=== PATIENT | male | born 1970 | race Hispanic/Latino ===

== ENCOUNTER → 2022-09-10 | Outpatient (CLI) | payer BC ==
[2022-09-10 13:09] LABS: ALBUMIN 4.2 g/dL (3.5-5.0); POTASSIUM 4.2 mmol/L (3.5-5.1); TOTAL PROTEIN, SERUM 7.7 g/dL (6.0-8.3)
== END | disposition home or self-care (01) ==
LOC: LAB 11:08
PROVIDERS: ATTEND Student in an Organized Health Care Education/Training Program
DX: I10 Essential (primary) hypertension (principal)
CPT/HCPCS: 36415; 80053

== ENCOUNTER → 2022-09-16 | Outpatient (CLI) | payer BC ==
[~2022-09-16] MED LIST: IOHEXOL 350 MG/ML 100ML INFUS..BTL IV ONE
== END | disposition home or self-care (01) ==
LOC: RAH 10:13
PROVIDERS: ATTEND Student in an Organized Health Care Education/Training Program
DX: R07.9 Chest pain, unspecified (principal)
CPT/HCPCS: 75574; Q9967

== ENCOUNTER 2023-01-15 08:02 | Day surgery (SDC) | payer BC ==
[2023-01-11 14:42] LABS: BASOPHILS # (AUTO) 0.04 K/uL (0.00-0.20); BASOPHILS % (AUTO) 0.6 % (0.0-5.0); EOSINOPHILS # (AUTO) 0.22 K/uL (0.00-0.70); EOSINOPHILS % (AUTO) 3.4 % (0.0-8.0); HEMATOCRIT 43.9 % (42-54); IMMATURE GRANULOCYTE ABSOLUTE 0.01 K/uL (0-1); LYMPHOCYTES # (AUTO) 2.6 K/uL (1.0-4.8); LYMPHOCYTES % (AUTO) 39.4 % (21.0-51.0); MEAN CORPUSCULAR HEMOGLOBIN 30.8 pg (27.0-33.0); MEAN CORPUSCULAR HGB CONC 33.5 g/dL (32.0-36.0); MEAN CORPUSCULAR VOLUME 91.8 fL (79-99); MONOCYTES # (AUTO) 0.5 K/uL (0.1-1.0); MONOCYTES % (AUTO) 7.7 % (3.0-13.0); NEUTROPHILS # (AUTO) 3.2 K/uL (1.8-7.7); NEUTROPHILS % (AUTO) 48.7 % (40.0-77.0); PLATELET COUNT (AUTO) 236 K/uL (130-400); RED BLOOD CELL COUNT(AUTO) 4.78 MIL/uL (4.50-6.20); WHITE BLOOD COUNT (AUTO) 6.5 K/uL (4.8-10.8)
[2023-01-11 14:45] VITALS: BP 126/78; PULSE 57; RESP 17
[2023-01-11 14:50] LABS: INR 0.95 (0.85-1.15); PROTHROMBIN TIME 11.1 SEC (9.6-11.6)
[2023-01-11 14:51] LABS: CREATININE 0.9 mg/dL (0.5-1.5); PARTIAL THROMBOPLASTIN TIME 31.2 SEC (26.3-35.5); POTASSIUM 3.9 mmol/L (3.5-5.1)
[2023-01-15] VITALS (18 sets, daily range): BP systolic 116–150; BP diastolic 57–93; PULSE 57–74; RESP 12–20
[~2023-01-15] VITALS: Ht 180.3 cm; Wt 112.9 kg
[~2023-01-15 08:02] MED LIST changes: +DEXAMETHASONE SOD PHOSPHATE 10MG/ML 1ML VIAL ONE; +FENTANYL CITRATE PF 50 MCG/1 ML 2ML VIAL ONE; +GLYCOPYRROLATE 1 MG/5 ML SYRINGE ONE; -IOHEXOL 350 MG/ML 100ML INFUS..BTL IV ONE; +LIDOCAINE PF 100MG/5ML (2%) SYRINGE 5ML ONE; +METO25TA6 PO; +MIDAZOLAM HCL 1 MG/ML 2ML VIAL ONE; +NEOSTIGMINE 5MG/5ML SYR IV ONE; +ONDANSETRON 4MG INJ ONE; +PROPOFOL 10 MG/ML 20ML VIAL IV ONE; +ROCURONIUM 10MG/1ML SYR 10 MG/ML ML ONE; +SUCCINYLCHOLINE 200MG/10ML SYR ONE
[2023-01-15] MEDS ORDERED: CEFAZOLIN SODIUM 2 GM VIAL ONE (08:20)
[2023-01-15] MEDS ORDERED: LACTATED RINGERS 1000ML 1,000 ML IV ONE (08:20)
[2023-01-15] MEDS ORDERED: CEFAZOLIN SODIUM 1 GM VIAL ONE (08:20)
[2023-01-15] MEDS ORDERED: VANCOMYCIN 1G/250ML KIT 250 ML IV ONE (08:29)
[2023-01-15] MEDS ORDERED: BUPIVACAINE/PF 0.25% 30ML VIAL IJ ONE (09:15)
[2023-01-15] MEDS ORDERED: ESMOLOL HCL 10 MG/ML 10 ML VIAL ONE ×2 (09:40→10:22)
[2023-01-15] MEDS ORDERED: SUCCINYLCHOLINE 200MG/10ML SYR ONE (09:50)
[2023-01-15] MEDS ORDERED: FENTANYL CITRATE PF 50 MCG/1 ML 2ML VIAL ONE (09:58)
[2023-01-15] MEDS ORDERED: PROPOFOL 10 MG/ML 20ML VIAL IV ONE (10:17)
[2023-01-15] MEDS ORDERED: MEPERIDINE-PF 25 MG/ML SYG ONE (11:12)
== END 2023-01-15 12:55 | disposition home or self-care (01) ==
LOC: DAH 08:02
PROVIDERS: ATTEND Surgery
DX: K43.0 Incisional hernia with obstruction, without gangrene (principal); Z20.822 Contact with and (suspected) exposure to COVID-19; I10 Essential (primary) hypertension; F41.9 Anxiety disorder, unspecified; E66.9 Obesity, unspecified; I48.91 Unspecified atrial fibrillation; I25.10 Atherosclerotic heart disease of native coronary artery without angina pectoris; I25.2 Old myocardial infarction; Z79.01 Long term (current) use of anticoagulants; Z79.899 Other long term (current) drug therapy; Z88.0 Allergy status to penicillin; Z82.49 Family history of ischemic heart disease and other diseases of the circulatory system; Z83.3 Family history of diabetes mellitus; Z80.8 Family history of malignant neoplasm of other organs or systems; Z82.5 Family history of asthma and other chronic lower respiratory diseases; Z87.891 Personal history of nicotine dependence; Z68.36 Body mass index [BMI] 36.0-36.9, adult
CPT/HCPCS: 80048; 85025; 85610; 85730; 87426; 36415; 49594; 93005; 64488; A4663; J7120 ×2; J3010 ×2; J0330 ×2; J3490 ×3; J1100; J2710; J2001; J2250; J2704 ×2; J2405; J3370; J2175; C1769 ×2; A4649; A4930 ×2; A4215; A4223; A4222; A4221; J7030; A4600; J0690

== ENCOUNTER → 2023-02-04 | Outpatient (CLI) | payer BC ==
[~2023-02-04] MED LIST changes: -DEXAMETHASONE SOD PHOSPHATE 10MG/ML 1ML VIAL ONE; -FENTANYL CITRATE PF 50 MCG/1 ML 2ML VIAL ONE; -GLYCOPYRROLATE 1 MG/5 ML SYRINGE ONE; -LIDOCAINE PF 100MG/5ML (2%) SYRINGE 5ML ONE; -MIDAZOLAM HCL 1 MG/ML 2ML VIAL ONE; -NEOSTIGMINE 5MG/5ML SYR IV ONE; -ONDANSETRON 4MG INJ ONE; -PROPOFOL 10 MG/ML 20ML VIAL IV ONE; -ROCURONIUM 10MG/1ML SYR 10 MG/ML ML ONE; -SUCCINYLCHOLINE 200MG/10ML SYR ONE
[2023-02-04 12:46] LABS: CHOLESTEROL 204 mg/dL (<200); HDL CHOLESTEROL 49 mg/dL (29-71); LDL DIRECT 124 mg/dL (0-99); TRIGLYCERIDES 168 mg/dL (30-200)
== END | disposition home or self-care (01) ==
LOC: LAB 09:07
PROVIDERS: ATTEND Student in an Organized Health Care Education/Training Program
DX: E78.5 Hyperlipidemia, unspecified (principal)
CPT/HCPCS: 36415; 80061

== ENCOUNTER 2023-02-07 18:09 | Observation (INO) | payer BC ==
[~2023-02-07] VITALS: Ht 180.3 cm; Wt 111.3 kg
[2023-02-07 18:25] LABS: BASOPHILS # (AUTO) 0.04 K/uL (0.00-0.20); BASOPHILS % (AUTO) 0.5 % (0.0-5.0); EOSINOPHILS # (AUTO) 0.39 K/uL (0.00-0.70); EOSINOPHILS % (AUTO) 4.6 % (0.0-8.0); HEMATOCRIT 45.6 % (42-54); IMMATURE GRANULOCYTE ABSOLUTE 0.03 K/uL (0-1); LYMPHOCYTES # (AUTO) 3.7 K/uL (1.0-4.8); MEAN CORPUSCULAR HEMOGLOBIN 30.9 pg (27.0-33.0); MEAN CORPUSCULAR HGB CONC 34.6 g/dL (32.0-36.0); MEAN CORPUSCULAR VOLUME 89.2 fL (79-99); MONOCYTES # (AUTO) 0.7 K/uL (0.1-1.0); MONOCYTES % (AUTO) 8.5 % (3.0-13.0); NEUTROPHILS # (AUTO) 3.6 K/uL (1.8-7.7); PLATELET COUNT (AUTO) 278 K/uL (130-400); RED BLOOD CELL COUNT(AUTO) 5.11 MIL/uL (4.50-6.20); WHITE BLOOD COUNT (AUTO) 8.5 K/uL (4.8-10.8)
[2023-02-07 18:36] LABS: INR 0.93 (0.85-1.15); PROTHROMBIN TIME 10.5 SEC (9.6-11.6)
[2023-02-07 18:40] LABS: CREATININE 1.1 mg/dL (0.5-1.5); POTASSIUM 3.8 mmol/L (3.5-5.1)
[2023-02-07 18:45] LABS: ALBUMIN 3.8 g/dL (3.5-5.0); BILIRUBIN,TOTAL 0.6 mg/dL (0.2-1.0); MAGNESIUM 1.9 mg/dL (1.80-2.40); TOTAL PROTEIN, SERUM 7.8 g/dL (6.0-8.3)
[2023-02-07 18:50] LABS: B-TYPE NATRIURETIC PEPTIDE 8 pg/mL (0-100)
[2023-02-07] MEDS ORDERED: IOHEXOL 350 MG/ML 100ML INFUS..BTL IV ONE (20:11)
[2023-02-07] MEDS ORDERED: ACETAMINOPHEN 325 MG TAB PO PRN ×2 (23:00)
[2023-02-07] MEDS ORDERED: NITROGLYCERIN 0.4 MG SL TAB SL PRN (23:00)
[2023-02-07] MEDS ORDERED: ONDANSETRON 4MG INJ IV PRN (23:00)
[2023-02-07 23:24] VITALS: BP 127/89; PULSE 59; RESP 20
[2023-02-08 00:01] VITALS: O2SAT 96
[2023-02-08 04:16] VITALS: BP 115/76; PULSE 67; RESP 20
[2023-02-08 05:35] LABS: HEMOGLOBIN A1C 5.8 % (4.0-6.0)
[2023-02-08 06:58] LABS: THYROID STIMULATING HORMONE 1.32 uIU/mL (0.36-3.74)
[2023-02-08 08:20] VITALS: BP 125/73; PULSE 58; RESP 18; O2SAT 97
[2023-02-08 08:29] VITALS: BP 125/73; PULSE 58; RESP 18
[2023-02-08] MEDS ORDERED: FAMOTIDINE 20MG TAB PO SCH (09:00)
[2023-02-08] MEDS ORDERED: METOPROLOL TARTRATE 25 MG TAB PO SCH (09:00)
[2023-02-08] MEDS ORDERED: ASPIRIN 81 MG EC TAB PO SCH (09:00)
[2023-02-08 12:00] VITALS: BP 127/87; PULSE 68; RESP 18
[2023-02-08 12:30] VITALS: BP 127/87; PULSE 68; RESP 18
[2023-02-08] MEDS ORDERED: AEC81 PO (15:08)
== END 2023-02-08 17:36 | disposition home or self-care (01) ==
LOC: EDH 18:09 → EDHIP 22:34 → 2DH 23:12
PROVIDERS: ADMIT Hospitalist; ATTEND Hospitalist
DX: R00.2 Palpitations (principal); R42 Dizziness and giddiness; R55 Syncope and collapse; I25.10 Atherosclerotic heart disease of native coronary artery without angina pectoris; I10 Essential (primary) hypertension; F41.9 Anxiety disorder, unspecified; F32.A Depression, unspecified; I25.2 Old myocardial infarction; Z88.0 Allergy status to penicillin; Z79.899 Other long term (current) drug therapy
CPT/HCPCS: 99285; 82550; 83735; 84484 ×4; 80053; 83880; 85025; 85610; 36415 ×2; 71045; 71270; 93005; 83036; 84443; 80061; G0378 ×19; Q9967

== ENCOUNTER → 2023-09-17 | Outpatient (CLI) | payer BC ==
[~2023-09-17] MED LIST changes: +AEC81 PO
[2023-09-17 12:38] LABS: CHOLESTEROL 217 mg/dL (<200); HDL CHOLESTEROL 53 mg/dL (29-71); LDL DIRECT 135 mg/dL (0-99); TRIGLYCERIDES 200 mg/dL (30-200)
== END | disposition home or self-care (01) ==
LOC: LAB 08:45
PROVIDERS: ATTEND Student in an Organized Health Care Education/Training Program
DX: E78.5 Hyperlipidemia, unspecified (principal)
CPT/HCPCS: 36415; 80061

== ENCOUNTER 2024-03-23 23:20 | Emergency (ER) | payer BC ==
[~2024-03-23] VITALS: Ht 167.6 cm; Wt 102.1 kg
[2024-03-23 23:48] LABS: BASOPHILS # (AUTO) 0.04 K/uL (0.00-0.20); BASOPHILS % (AUTO) 0.6 % (0.0-5.0); EOSINOPHILS # (AUTO) 0.38 K/uL (0.00-0.70); EOSINOPHILS % (AUTO) 5.2 % (0.0-8.0); HEMATOCRIT 46.4 % (42-54); IMMATURE GRANULOCYTE ABSOLUTE 0.03 K/uL (0-1); LYMPHOCYTES # (AUTO) 3.5 K/uL (1.0-4.8); LYMPHOCYTES % (AUTO) 48.9 % (21.0-51.0); MEAN CORPUSCULAR HEMOGLOBIN 31.3 pg (27.0-33.0); MEAN CORPUSCULAR HGB CONC 34.7 g/dL (32.0-36.0); MEAN CORPUSCULAR VOLUME 90.3 fL (79-99); MONOCYTES # (AUTO) 0.4 K/uL (0.1-1.0); MONOCYTES % (AUTO) 5.9 % (3.0-13.0); NEUTROPHILS # (AUTO) 2.8 K/uL (1.8-7.7); PLATELET COUNT (AUTO) 245 K/uL (130-400); RED BLOOD CELL COUNT(AUTO) 5.14 MIL/uL (4.50-6.20); RED CELL DISTRIBUTION WIDTH 12.2 % (11.0-15.5); WHITE BLOOD COUNT (AUTO) 7.2 K/uL (4.8-10.8)
[2024-03-23] MEDS: LACTATED RINGERS 1000ML 1,000 ML IV ONE (23:54)
[2024-03-24 00:01] LABS: CREATININE 1.2 mg/dL (0.5-1.3); POTASSIUM 3.4 mmol/L (3.5-5.1)
[2024-03-24 00:05] LABS: INR 0.95 (0.85-1.15); PARTIAL THROMBOPLASTIN TIME 28.1 SEC (26.3-35.5); PROTHROMBIN TIME 10.3 SEC (9.6-11.6)
[2024-03-24 00:06] LABS: MAGNESIUM 1.9 mg/dL (1.80-2.40)
[2024-03-24 01:23] LABS: B-TYPE NATRIURETIC PEPTIDE < 5 pg/mL (0-100)
[2024-03-24 02:15] LABS: AMPHET/METH SCREEN,URINE NEGATIVE (NEGATIVE); BARBITURATE SCREEN, URINE NEGATIVE (NEGATIVE); BENZODIAZEPINES SCREEN,URINE NEGATIVE (NEGATIVE); CANNABINOID SCREEN,URINE NEGATIVE (NEGATIVE); COCAINE SCREEN,URINE NEGATIVE (NEGATIVE); OPIATE SCREEN,URINE NEGATIVE (NEGATIVE); PHENCYCLIDINE SCREEN,URINE NEGATIVE (NEGATIVE)
[2024-03-24 02:18] LABS: APPEARANCE,URINE CLEAR (CLEAR); BILIRUBIN,URINE NEGATIVE (NEGATIVE); COLOR,URINE LIGHT-YELLOW (YELLOW); GLUCOSE, URINE (UA) NEGATIVE (NEGATIVE); KETONES,URINE NEGATIVE (NEGATIVE); LEUKOCYTE ESTERASE ,URINE NEGATIVE Leu/uL (NEGATIVE); NITRATE,URINE NEGATIVE (NEGATIVE); OCCULT BLOOD,URINE NEGATIVE (NEGATIVE); PH,URINE 5.5 (5.0-8.0); PROTEIN,URINE NEGATIVE (NEGATIVE); UROBILINOGEN,URINE 0.2 mg/dL (0.2-1.0)
[2024-03-24 02:19] LABS: ADD UA MICROSCOPIC NO
[2024-03-24] MEDS: PoTASSium BIcarbonate/CIT AC 25 MEQ TABLET.EFF PO ONE (02:23)
[2024-03-24 02:30] VITALS: BP 122/78; PULSE 117; RESP 18; TEMP 98.3; O2SAT 97
== END 2024-03-24 02:35 | disposition home or self-care (01) ==
LOC: EDH 23:20
DX: R00.0 Tachycardia, unspecified (principal); E86.0 Dehydration; E66.9 Obesity, unspecified; I25.10 Atherosclerotic heart disease of native coronary artery without angina pectoris; I10 Essential (primary) hypertension; I25.2 Old myocardial infarction; Z88.0 Allergy status to penicillin; Z79.82 Long term (current) use of aspirin; Z79.899 Other long term (current) drug therapy; Z68.30 Body mass index [BMI] 30.0-30.9, adult
CPT/HCPCS: 99284; 96360; 71045; 82550; 83735; 84484; 80048; 83880; 80305; 85025; 85610; 85730; 36415; 93005; 81003; J7120

== ENCOUNTER 2024-05-27 10:46 | Emergency (ER) | payer BC ==
[~2024-05-27] VITALS: Ht 154.9 cm; Wt 122.5 kg
--- NOTE | 2024-05-27 11:06 | ERN ---
ED Note History of Present Illness Stated Complaint: ABDPAIN Chief Complaint: Abdominal Pain Time Seen by MD: 10:49 Dictation: PATIENT IS A 53-YEAR-OLD MALE COMING IN TODAY WITH COMPLAINTS OF PERIUMBILICAL PAIN WITHOUT NAUSEA VOMITING OR FEVER ONSET YESTERDAY. HAS A HISTORY OF PRIOR UMBILICAL HERNIA REPAIRS X2 AT [facility] [place], HAS NOT BEEN TO SEE HIS PRIMARY CARE DOCTOR. Allergies: Coded Allergies: Penicillins (Unverified Allergy, Severe, ANAPHYLAXIS, 01/11/23) Home Meds Active Scripts Aspirin (ASPIRIN 81 MG ECTAB) 81 Mg Ectab, 81 MG PO DAILY, #30 TAB.EC Prov:MILLICENT ABRAHAM MD 02/08/23 Reported Medications Metoprolol Tartrate (Metoprolol Tartrate) 25 Mg Tablet, 25 MG PO BID, TAB 01/11/23 Past Medical History Past Medical History: CAD, Hypertension, [place] Surgical History: Other Surgical History Other: HERNIA Family History: Negative Social History: Negative, Lives with family RN Note Reviewed/Agreed w/PFSH: Yes Review of System Dictation CONSTITUTIONAL: NEGATIVE EXCEPT FOR HPI HEAD/FACE: NEGATIVE EXCEPT FOR HPI EENT: NEGATIVE EXCEPT FOR HPI RESPIRATORY: NEGATIVE EXCEPT FOR HPI GASTROINTESTINAL/ABDOMINAL: NEGATIVE EXCEPT FOR HPI PERIUMBILICAL PAIN WITH HERNIA NOTED REDUCIBLE GENITOURINARY: NEGATIVE EXCEPT FOR HPI MUSCULOSKELETAL: NEGATIVE EXCEPT FOR HPI INTEGUMENTARY: NEGATIVE EXCEPT FOR HPI NEUROLOGICAL/PSYCH: NEGATIVE EXCEPT FOR HPI HEMATOLOGIC/LYMPHATIC: NEGATIVE EXCEPT FOR HPI ALL SYSTEMS NEGATIVE, EXCEPT NOTED ABOVE. 13 POINT REVIEW OF SYSTEMS ASSESSED AND ALL NEGATIVE EXCEPT FOR ABOVE. Initial Vital Sign VS Vital Signs Date Time Temp Pulse Resp B/P (MAP) Pulse Ox O2 Delivery O2 Flow Rate FiO2 05/27/24 11:06 98.2 86 22 163/107 99 Room Air 0 05/27/24 11:07 21 Physical Exam Dictation VITAL SIGNS REVIEWED GENERAL APPEARANCE: ALERT, ORIENTED X 3, MILD ACUTE DISTRESS, WELL DEVELOPED, NOURISHED. MORBIDLY OBESE HEAD AND FACE: NON-TRAUMATIC. EYES: PERRL, PINK CONJUNCTIVAS, EYELID NO TRAUMA, ANTERIOR CHAMBER WITH ARCUS SENILIS. EARS: PINNAS INTACT AND NO SIGNS OF TRAUMA OR ERYTHEMA EAR CANALS CLEAR AND NO DISCHARGE TM NO ERYTHEMA NOSE: NO DISCHARGE, NO BLEEDING. OROPHARYNX: MOUTH NORMAL, TONGUE PINK, PHARYNX CLEAR,NO ERYTHEMA, TONSILS NO EXUDATES, NO ABSCESSES NOTED, MUCOUS ME MBRANE MOIST NECK: SUPPLE, NON-TENDER, NO THYROMEGALY, NO MASSES, NO JVD, NO BRUITS BREAST:DEFERRED CHEST:NO TENDERNESS, NO CREPITUS, NO PARADOXICAL MOVEMENT, NO RETRACTIONS LUNGS:CLEAR, WELL-VENTILATED, SYMMETRIC, NO RALES, NO WHEEZING, NO RHONCHI, NO STRIDOR, GOOD BREATH SOUNDS BILATERALLY HEART: REGULAR RATE, REGULAR RHYTHM, NO MURMUR, NO GALLOPS VASCULAR: NO PERIPHERAL EDEMA, ABDOMEN: SOFT, POSITIVE BOWEL SOUNDS, NONDISTENDED, NO GUARDING, MILD LEFT LATERAL PERIUMBILICAL TENDERNESS AND OBVIOUS HERNIA. REDUCE HIS EASILY. RECTAL: DEFERRED GENITAL: DEFERRED NEUROLOGICAL: NORMAL SPEECH, MOTOR FUNCTION INTACT, SENSORY FUNCTION INTACT MUSCULOSKELETAL: NECK NONTENDER, FULL RANGE OF MOTION, BACK NONTENDER, FULL RANGE OF MOTION, EXTREMITIES: NONTENDER, FULL RANGE OF MOTION SKIN: COLOR PINK, DRY, NO TURGOR, NO RASH, NO LACERATIONS, NO ABRASIONS, NO CONTUSIONS. LYMPHATIC: DEFERRED Results (Laboratory/Radiology) Laboratory/Radiology Laboratory Tests Test 05/27/24 11:27 05/27/24 13:34 White Blood Count 6.2 K/uL (4.8-10.8) Red Blood Count 5.05 MIL/uL (4.50-6.20) Hemoglobin 15.8 g/dL (14.0-18.0) Hematocrit 45.5 % (42-54) Mean Corpuscular Volume 90.1 fL (79-99) Mean Corpuscular Hemoglobin 31.3 pg (27.0-33.0) Mean Corpuscular Hemoglobin Concent 34.7 g/dL (32.0-36.0) Red Cell Distribution Width 12.0 % (11.0-15.5) Platelet Count 233 K/uL (130-400) Mean Platelet Volume 10.8 fL (7.5-10.5) H Immature Granulocyte % (Auto) 0.3 % (0-1) Neutrophils (%) (Auto) 59.3 % (40.0-77.0) Lymphocytes (%) (Auto) 31.6 % (21.0-51.0) Monocytes (%) (Auto) 6.2 % (3.0-13.0) Eosinophils (%) (Auto) 2.3 % (0.0-8.0) Basophils (%) (Auto) 0.3 % (0.0-5.0) Neutrophils # (Auto) 3.7 K/uL (1.8-7.7) Lymphocytes # (Auto) 2.0 K/uL (1.0-4.8) Monocytes # (Auto) 0.4 K/uL (0.1-1.0) Eosinophils # (Auto) 0.14 K/uL (0.00-0.70) Basophils # (Auto) 0.02 K/uL (0.00-0.20) Absolute Immature Granulocyte (auto 0.02 K/uL (0-1) Nucleated Red Blood Cells 0.0 % (0.0-0.19) Sodium Level 142 mmol/L (136-145) Potassium Level 4.6 mmol/L (3.5-5.1) Chloride Level 104 mmol/L (101-111) Carbon Dioxide Level 28 mmol/L (21-32) Blood Urea Nitrogen 21 mg/dL (7-18) H Creatinine 1.4 mg/dL (0.5-1.3) H Glomerular Filtration Rate Calc 61 mL/min (>90) Random Glucose 105 mg/dL (70-105) Total Calcium 9.0 mg/dL (8.5-10.1) Lipase 40 U/L (16-77) Urine Color LIGHT-YELLOW (YELLOW) Urine Appearance CLEAR (CLEAR) Urine pH 7.0 (5.0-8.0) Urine Specific [place] 1.025 (1.001-1.031) Urine Protein NEGATIVE mg/dL (NEGATIVE) Urine Glucose (UA) NEGATIVE mg/dL (NEGATIVE) Urine Ketones NEGATIVE mg/dL (NEGATIVE) Urine Occult Blood MODERATE (NEGATIVE) H Urine Nitrate NEGATIVE (NEGATIVE) Urine Bilirubin NEGATIVE mg/dL (NEGATIVE) Urine Urobilinogen 0.2 mg/dL (0.2-1.0) Urine Leukocyte Esterase NEGATIVE Matthew/uL Urine RBC 26-50 /HPF (0-1) H Urine WBC 0-1 /HPF (0-1) Urine Bacteria None /HPF (None Seen) ABDOMEN: Heart size is normal. Visible lung bases are clear. No abnormal left renal calcifications, hydronephrosis, perinephric inflammation, or proximal hydroureter detected. 3 mm right ureterovesicular junction stone contributing to mild to moderate right hydroureteronephrosis. Punctate nonobstructing stone at the mid to lower portion of the right kidney. Small simple right renal cyst. Mild right perinephric edema. The liver is normal in size and smooth in contour without biliary duct dilation. Diffuse low attenuation of the liver parenchyma suggests fatty change. The spleen is normal in size and attenuation. The gallbladder appears normal. The pancreas appears normal without pancreatic duct dilation. The adrenal glands appear normal. No significant abdominal, retrocrural or retroperitoneal adenopathy noted. No evidence for intra-abdominal free air or organized fluid collection. No aortic aneurysmal dilation identified. Very small fat-containing nonobstructing supraumbilical hernia. Small fat-containing nonobstructing ventral hernia slightly to the left of the midline at the same level. PELVIS: No abnormal calcifications within the urinary bladder or distal ureters. No evidence for free air or organized pelvic fluid collection. No significant pelvic adenopathy detected. Visualized small and large bowel loops appear normal. Terminal ileum appears unremarkable. The appendix appears normal. Visible osseous structures are intact. IMPRESSION: 1. 3 mm right ureterovesicular junction stone contributing to mild to moderate right hydroureteronephrosis and mild right perinephric edema. Punctate nonobstructing right renal stone. 2. Very small fat-containing nonobstructing supraumbilical hernia. Small fat-containing nonobstructing ventral hernia slightly to the left of the midline at the same level. 3. Hepatic steatosis. Labs Reviewed?: Yes ED Course ED Course Orders Procedure Category Date Status Time Cbc With Differential LAB 05/27/24 Complete 11:03 Urinalysis Profile LAB 05/27/24 Complete 11:03 Ct Abdomen/Pelvis CT 05/27/24 Resulted W/Contrast 11:03 0.9%Nacl 1000ml (Ns PHA 05/27/24 Complete 1000ml) 11:30 Morphine 2mg Syg PHA 05/27/24 Complete (Morphine 2mg Syg) 11:30 Ondansetron 4mg Inj PHA 05/27/24 Complete (Zofran 4mg Inj) 11:30 Lipase LAB 05/27/24 Complete 11:03 Basic Metabolic Panel LAB 05/27/24 Complete 11:03 Iohexol (Omnipaque) PHA 05/27/24 Complete 11:53 Tamsulosin Hcl PHA 05/27/24 Complete (Flomax) 13:00 Ketorolac PHA 05/27/24 Complete Tromethamine 30mg/Ml 13:00 Current Medications Medications (Trade) Dose Ordered Sig/Venita Route PRN Reason Start Time Stop Time Status Last Admin Dose Admin Iohexol (Omnipaque) 75 ml STK-MED ONCE IV 05/27/24 11:53 05/27/24 11:54 DC Ketorolac Tromethamine (toRADol) 30 mg ONCE ONCE IVP 05/27/24 13:00 05/27/24 13:01 DC 05/27/24 13:06 Morphine Sulfate (morPHINE 2MG SYG) 2 mg ONCE ONCE IVP 05/27/24 11:30 05/27/24 11:31 DC 05/27/24 11:34 Ondansetron HCl (zoFRAN 4MG INJ) 4 mg ONCE ONCE IVP 05/27/24 11:30 05/27/24 11:31 DC 05/27/24 11:33 Sodium Chloride 1,000 ml @ 0 mls/hr ONCE ONCE IV 05/27/24 11:30 05/27/24 11:31 DC 05/27/24 11:33 Tamsulosin HCl (FloMAX) 0.4 mg ONCE ONCE PO 05/27/24 13:00 05/27/24 13:01 DC 05/27/24 13:06 Vital Signs Date Time Temp Pulse Resp B/P (MAP) Pulse Ox O2 Delivery O2 Flow Rate FiO2 05/27/24 13:49 98.2 73 18 147/89 96 Room Air* 0 21 05/27/24 11:07 80 18 146/98 98 Room Air* 0 21 05/27/24 11:06 98.2 86 22 163/107 99 Room Air 0 1355, patient is aware that he has a left urolithiasis with a ureteral colic. Not obstructing. Discharged home with Levaquin and Flomax and ibuprofen told to follow up with his doctor for Urology referral in the next 2-3 days. Medical Decision Making MDM MDM: Differential diagnosis: Diverticulitis/incarcerated hernia/strangulated hernia/UTI/electrolyte imbalance/dehydration/urolithiasis/ureteral colic Rationale: Tests considered and ordered secondary to shared decision making include: Radiology/labs Previous outside records reviewed: Old ER visits. Reviewed Risk of complication and/or morbidity or mortality of patient management: None Medications-Per medication reconciliation see nurse's notes Need for hospitalization: Patient does not meet criteria for hospitalization. No Need for emergency major/minor surgery: No There are no social concerns with this patient. Prescription drug management Flomax/Levaquin/ibuprofen Prescriptions will include symptomatic care Patient's prior external medical records from other ER visits were reviewed by me as indicated. Prior testing and results from previous visits were reviewed. Prior tests were taken into account with medical decision making and resource utilization, independent historian/historians were used to obtain complete medical history. I independently interpreted the test that were performed, results were reviewed by me and considered findings on radiology if ordered. Medical management and examination interpretation discussions were had by me with other qualified healthcare professionals as indicated for the patient's care. DX & DISP Disposition: Discharge Departure Impression: Primary Impression: Urolithiasis Additional Impressions: Ureteral colic, Dehydration, Umbilical hernia, Obesity Condition: Stable Scripts Ibuprofen (Ibuprofen) 800 Mg Tablet 800 MG PO Q8H PRN for PAIN, #30 TAB 0 Refills Prov: JACE HATFIELD NP 05/27/24 Levofloxacin (Levofloxacin) 500 Mg Tablet 1 TAB PO DAILY for 7 Days, #7 TAB 0 Refills Prov: JACE HATFIELD NP 05/27/24 Tamsulosin HCl (Flomax) 0.4 Mg Cap.er.24h 0.4 MG PO DAILY for 14 Days, #14 CAPSULE. Prov: JACE HATFIELD NP 05/27/24 Additional Instructions: Follow-up with primary care provider in 1 to 2 days. Take medications as directed here in the emergency room. Okay to continue home medications unless otherwise discussed during your visit in the emergency room today. Return to your nearest emergency room if symptoms worsen or if there is no improvement. Call 911 if you need immediate assistance. Take Tylenol or Motrin [id number] as needed and if no contraindications are present. Increase o ral hydration. A wound culture or urine culture was ordered here in the emergency room department please follow-up with primary care provider and advise them to get repeat ports from our facility. If you had any Roberto wrap/splints that were applied here, please do not remove them until you see your primary care or specialty. Take Flomax as directed for the next14 days. Take antibiotic as directed until gone. Increase your water intake and see your primary care doctor on Wednesday for referral to Urology. Referrals: PEREZ TAM MD (PCP) Time of Disposition: 13:57 I have reviewed the case, and I agree with, Diagnosis and Plan JACE HATFIELD NP May 27, 2024 11:05
--- NOTE | 2024-05-27 11:15 | NUR ---
PATIENT PENDING GFR RESULTS, IV SITE, & CONSENT FOR CT EXAM.
[2024-05-27 11:30] LABS: BASOPHILS # (AUTO) 0.02 K/uL (0.00-0.20); BASOPHILS % (AUTO) 0.3 % (0.0-5.0); EOSINOPHILS # (AUTO) 0.14 K/uL (0.00-0.70); EOSINOPHILS % (AUTO) 2.3 % (0.0-8.0); HEMATOCRIT 45.5 % (42-54); IMMATURE GRANULOCYTE ABSOLUTE 0.02 K/uL (0-1); LYMPHOCYTES % (AUTO) 31.6 % (21.0-51.0); MEAN CORPUSCULAR HEMOGLOBIN 31.3 pg (27.0-33.0); MEAN CORPUSCULAR HGB CONC 34.7 g/dL (32.0-36.0); MEAN CORPUSCULAR VOLUME 90.1 fL (79-99); MONOCYTES # (AUTO) 0.4 K/uL (0.1-1.0); MONOCYTES % (AUTO) 6.2 % (3.0-13.0); NEUTROPHILS # (AUTO) 3.7 K/uL (1.8-7.7); NEUTROPHILS % (AUTO) 59.3 % (40.0-77.0); PLATELET COUNT (AUTO) 233 K/uL (130-400); RED BLOOD CELL COUNT(AUTO) 5.05 MIL/uL (4.50-6.20); WHITE BLOOD COUNT (AUTO) 6.2 K/uL (4.8-10.8)
[2024-05-27] MEDS: 0.9%NACL 1000ML 1,000 ML IV ONE (11:33)
[2024-05-27] MEDS: ondanSETRON 4MG INJ IVP ONE (11:33)
[2024-05-27] MEDS: morPHINE 2 MG SYG IVP ONE (11:34)
[2024-05-27 11:39] LABS: CREATININE 1.4 mg/dL (0.5-1.3); POTASSIUM 4.6 mmol/L (3.5-5.1)
[2024-05-27] MEDS ORDERED: IOHEXOL-350 75 ML VIAL IV ONE (11:53)
--- NOTE | 2024-05-27 12:34 | HMCIMG ---
CT ABDOMEN WITH CONTRAST. CT PELVIS WITH CONTRAST. INDICATION: Abdominal pain, umbilical hernia TECHNIQUE: Routine transaxial imaging using 5 mm slice thickness through the abdomen and pelvis after the intravenous initiation of 75 mL of Omnipaque 350 contrast material. Thin slice reconstructions are also provided. Coronal and sagittal reformatted images acquired for interpretation. CT was performed with one or more of the following dose reduction techniques: Automated exposure control, adjustment of the mA and/or kV according to patient size, or use of iterative reconstruction technique. COMPARISON: None FINDINGS: ON NONCONTRAST IMAGING: ABDOMEN: Heart size is normal. Visible lung bases are clear. No abnormal left renal calcifications, hydronephrosis, perinephric inflammation, or proximal hydroureter detected. 3 mm right ureterovesicular junction stone contributing to mild to moderate right hydroureteronephrosis. Punctate nonobstructing stone at the mid to lower portion of the right kidney. Small simple right renal cyst. Mild right perinephric edema. The liver is normal in size and smooth in contour without biliary duct dilation. Diffuse low attenuation of the liver parenchyma suggests fatty change. The spleen is normal in size and attenuation. The gallbladder appears normal. The pancreas appears normal without pancreatic duct dilation. The adrenal glands appear normal. No significant abdominal, retrocrural or retroperitoneal adenopathy noted. No evidence for intra-abdominal free air or organized fluid collection. No aortic aneurysmal dilation identified. Very small fat-containing nonobstructing supraumbilical hernia. Small fat-containing nonobstructing ventral hernia slightly to the left of the midline at the same level. PELVIS: No abnormal calcifications within the urinary bladder or distal ureters. No evidence for free air or organized pelvic fluid collection. No significant pelvic adenopathy detected. Visualized small and large bowel loops appear normal. Terminal ileum appears unremarkable. The appendix appears normal. Visible osseous structures are intact. IMPRESSION: 1. 3 mm right ureterovesicular junction stone contributing to mild to moderate right hydroureteronephrosis and mild right perinephric edema. Punctate nonobstructing right renal stone. 2. Very small fat-containing nonobstructing supraumbilical hernia. Small fat-containing nonobstructing ventral hernia slightly to the left of the midline at the same level. 3. Hepatic steatosis.
[2024-05-27] MEDS: tamSULOsin HCL 0.4 MG CAP.ER.24H PO ONE (13:06)
[2024-05-27] MEDS: ketOROlac 30MG VIAL (30MG/ML) IVP ONE (13:06)
[2024-05-27 13:47] LABS: APPEARANCE,URINE CLEAR (CLEAR); BILIRUBIN,URINE NEGATIVE (NEGATIVE); GLUCOSE, URINE (UA) NEGATIVE (NEGATIVE); KETONES,URINE NEGATIVE (NEGATIVE); LEUKOCYTE ESTERASE ,URINE NEGATIVE Leu/uL (NEGATIVE); NITRATE,URINE NEGATIVE (NEGATIVE); OCCULT BLOOD,URINE MODERATE (NEGATIVE); PROTEIN,URINE NEGATIVE (NEGATIVE); UROBILINOGEN,URINE 0.2 mg/dL (0.2-1.0)
[2024-05-27 13:49] VITALS: BP 147/89; PULSE 73; RESP 18; TEMP 98.2; O2SAT 96
[2024-05-27 13:49] LABS: ADD UA MICROSCOPIC YES; COLOR,URINE LIGHT-YELLOW (YELLOW)
[2024-05-27 13:50] LABS: MUCUS,URINE RARE LPF (None Seen); RBC,URINE 26-50 /HPF (0-1); WBC,URINE 0-1 /HPF (0-1)
[2024-05-27] MEDS ORDERED: TAMS-1 PO (13:58)
[2024-05-27] MEDS ORDERED: LEVO-70 PO (13:58)
[2024-05-27] MEDS ORDERED: IBUP-2071 PO (13:58)
== END 2024-05-27 14:10 | disposition home or self-care (01) ==
LOC: EDH 10:46
DX: N13.2 Hydronephrosis with renal and ureteral calculous obstruction (principal); N23 Unspecified renal colic; E86.0 Dehydration; K42.9 Umbilical hernia without obstruction or gangrene; E66.9 Obesity, unspecified; I25.10 Atherosclerotic heart disease of native coronary artery without angina pectoris; I10 Essential (primary) hypertension; Z79.82 Long term (current) use of aspirin; Z88.0 Allergy status to penicillin
CPT/HCPCS: 99284; 74177; 96374; 96361; 96375; 80048; 83690; 85025; 81001; 36415; J2270; J7030; J2405; J1885; Q9967

== ENCOUNTER 2024-12-09 04:54 | Emergency (ER) | payer BC ==
[~2024-12-09] VITALS: Ht 180.3 cm; Wt 127.0 kg
[~2024-12-09 04:54] MED LIST changes: +IBUP-2071 PO; +LEVO-70 PO; +TAMS-55 PO
--- NOTE | 2024-12-09 05:03 | EKG ---
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
[2024-12-09 05:17] LABS: BASOPHILS # (AUTO) 0.04 K/uL (0.00-0.20); BASOPHILS % (AUTO) 0.7 % (0.0-5.0); EOSINOPHILS # (AUTO) 0.19 K/uL (0.00-0.70); EOSINOPHILS % (AUTO) 3.2 % (0.0-8.0); HEMATOCRIT 43.9 % (42-54); IMMATURE GRANULOCYTE ABSOLUTE 0.02 K/uL (0-1); LYMPHOCYTES # (AUTO) 2.6 K/uL (1.0-4.8); LYMPHOCYTES % (AUTO) 43.6 % (21.0-51.0); MEAN CORPUSCULAR HEMOGLOBIN 31.1 pg (27.0-33.0); MEAN CORPUSCULAR HGB CONC 34.2 g/dL (32.0-36.0); MEAN CORPUSCULAR VOLUME 90.9 fL (79-99); MONOCYTES # (AUTO) 0.4 K/uL (0.1-1.0); MONOCYTES % (AUTO) 6.8 % (3.0-13.0); NEUTROPHILS # (AUTO) 2.7 K/uL (1.8-7.7); NEUTROPHILS % (AUTO) 45.4 % (40.0-77.0); PLATELET COUNT (AUTO) 239 K/uL (130-400); RED BLOOD CELL COUNT(AUTO) 4.83 MIL/uL (4.50-6.20); RED CELL DISTRIBUTION WIDTH 12.1 % (11.0-15.5); WHITE BLOOD COUNT (AUTO) 5.9 K/uL (4.8-10.8)
[2024-12-09 05:31] LABS: CREATININE 1.1 mg/dL (0.5-1.3); POTASSIUM 3.6 mmol/L (3.5-5.1)
[2024-12-09 05:37] LABS: INR 1.05 (0.85-1.15); PROTHROMBIN TIME 11.1 SEC (9.6-11.6)
[2024-12-09 05:39] LABS: PARTIAL THROMBOPLASTIN TIME 30.5 SEC (26.3-35.5)
--- NOTE | 2024-12-09 06:15 | ERN ---
General Chief Complaint: Palpitations Stated Complaint: PALPITATIONS, SOB Time Seen by MD: 05:35 History of Present Illness Initial Comments 54-year-old male with a history of SVT noted this morning about 430 in the morning that his heart rate was starting to rise. He took his usual dose of metoprolol and it did not control his heart rate. So he comes to the emergency room in SVT. Timing/Duration: 4-6 hours Allergies: Coded Allergies: Penicillins (Unverified Allergy, Severe, ANAPHYLAXIS, 01/11/23) Home Meds Active Scripts Ibuprofen (Ibuprofen) 800 Mg Tablet, 800 MG PO Q8H PRN for PAIN, #30 TAB 0 Refills Prov:JACE HATFIELD NP 05/27/24 Levofloxacin (Levofloxacin) 500 Mg Tablet, 1 TAB PO DAILY for 7 Days, #7 TAB 0 Refills Prov:JACE HATFIELD NP 05/27/24 Tamsulosin HCl (Flomax) 0.4 Mg Cap.er.24h, 0.4 MG PO DAILY for 14 Days, #14 CAPSULE.DR Prov:JACE HATFIELD NP 05/27/24 Aspirin (ASPIRIN 81 MG ECTAB) 81 Mg Ectab, 81 MG PO DAILY, #30 TAB.EC Prov:MILLICENT ABRAHAM MD 02/08/23 Reported Medications Metoprolol Tartrate (Metoprolol Tartrate) 25 Mg Tablet, 25 MG PO BID, TAB 01/11/23 Past Medical History Past Medical History: Hypertension, [place] Medical History Other: HERNIA Past Surgical History: Other Surgical History Other: UMBILICAL HERNIA REPAIRS X2 Family History Family History: Negative Social History Social History: Negative, Lives with family Constitutional: (-) chills, (-) diaphoresis, (-) fever, (-) malaise, (-) weakness, (-) other documentation EENTM: (-) eye pain, (-) blurred vision, (-) tearing, (-) double vision, (-) ear pain, (-) ear discharge, (-) nose pain, (-) nose congestion, (-) throat pain, (-) Throat swelling, (-) mouth pain, (-) tooth pain, (-) mouth swelling, (-) other documentation Respiratory: (-) cough, (-) orthopnea, (-) short of breath, (-) stridor, (-) wheezing, (-) other documentation Cardiovascular: (+) palpitations; (-) chest pain, (-) edema, (-) syncope, (-) dyspnea on exertion, (-) other documentation Gastrointestinal/Abdominal: (-) nausea, (-) vomiting, (-) diarrhea, (-) abdominal pain, (-) abdominal distention, (-) constipation, (-) rectal bleeding, (-) dark stool/melena, (-) other documentation Skin: (-) laceration, (-) contusion, (-) abrasion, (-) abscess, (-) rash, (-) change in color, (-) change in hair, (-) change in nails, (-) diaphoresis, (-) dryness, (-) other documentation Physical Exam General Appearance: (+) no apparent distress Orientation: (+) oriented x 3 Head/Face Trauma: No Eye: bilateral eye normal inspection, bilateral eye PERRL, bilateral eye EOMI Ear, Nose, Throat: (+) hearing grossly normal, (+) normal ENT inspection, (+) moist mucous membraine Neck: (+) normal inspection, (+) supple Respiratory: (+) chest non-tender, (+) lungs clear, (+) well ventilated Heart: (+) regular, (+) no gallop Heart Comment Patient's heart rate is in the high 80s to low 90s. This is his normal heart rate. Gastrointestinal: (+) soft, (+) non-tender, (+) bowel sound present Results Laboratory and Microbiology Lab and Micro Result Laboratory Tests Test 12/09/24 05:10 White Blood Count 5.9 K/uL (4.8-10.8) Red Blood Count 4.83 MIL/uL (4.50-6.20) Hemoglobin 15.0 g/dL (14.0-18.0) Hematocrit 43.9 % (42-54) Mean Corpuscular Volume 90.9 fL (79-99) Mean Corpuscular Hemoglobin 31.1 pg (27.0-33.0) Mean Corpuscular Hemoglobin Concent 34.2 g/dL (32.0-36.0) Red Cell Distribution Width 12.1 % (11.0-15.5) Platelet Count 239 K/uL (130-400) Mean Platelet Volume 10.8 fL (7.5-10.5) H Immature Granulocyte % (Auto) 0.3 % (0-1) Neutrophils (%) (Auto) 45.4 % (40.0-77.0) Lymphocytes (%) (Auto) 43.6 % (21.0-51.0) Monocytes (%) (Auto) 6.8 % (3.0-13.0) Eosinophils (%) (Auto) 3.2 % (0.0-8.0) Basophils (%) (Auto) 0.7 % (0.0-5.0) Neutrophils # (Auto) 2.7 K/uL (1.8-7.7) Lymphocytes # (Auto) 2.6 K/uL (1.0-4.8) Monocytes # (Auto) 0.4 K/uL (0.1-1.0) Eosinophils # (Auto) 0.19 K/uL (0.00-0.70) Basophils # (Auto) 0.04 K/uL (0.00-0.20) Absolute Immature Granulocyte (auto 0.02 K/uL (0-1) Nucleated Red Blood Cells 0.0 % (0.0-0.19) Prothrombin Time 11.1 SEC (9.6-11.6) Prothromb Time International Ratio 1.05 (0.85-1.15) Activated Partial Thromboplast Time 30.5 SEC (26.3-35.5) Sodium Level 138 mmol/L (136-145) Potassium Level 3.6 mmol/L (3.5-5.1) Chloride Level 103 mmol/L (101-111) Carbon Dioxide Level 25 mmol/L (21-32) Blood Urea Nitrogen 24 mg/dL (7-18) H Creatinine 1.1 mg/dL (0.5-1.3) Glomerular Filtration Rate Calc 81 mL/min (>90) Random Glucose 114 mg/dL (70-105) H Total Calcium 8.6 mg/dL (8.5-10.1) Troponin I High Sensitivity 5 ng/L (4-75) MDM Patient's admission EKG shows SVT with a junctional ST depression. By the time I went to see the patient he was in a normal sinus rhythm at 88. He tells me that his normal heart rate is in the 80s to 90s. He tells me the metoprolol is what he uses for rate control and it usually works. His clinical operations specialist is Dr. Armstrong who has been trying to schedule a CT scan of the patient's heart. Initially the test was going to be done here but then the patient could not afford the co-pay so he went to another hospital to have it scheduled. As of this point the CT scan has not been performed. They do not know what kind of CT scan it was going to be can, I can only assume it was a cardiac score; however, it could just as easily be an MRI to look for structural causes for the patient's intermittent episodes of SVT. Patient did find the referral papers in its for a coronary arteriogram CT, which we do not do here on the weekends. Patient's heart rate is normal for him now. Laboratory studies show normal CBC, chemistry panel is normal with a troponin of five and a beta natriuretic peptide of seven. The patient can be discharged home. ED Course Orders Procedure Category Date Status Time 12 Lead Ekg Tracing- EKG 12/09/24 Complete Technical 04:57 Cbc With Differential LAB 12/09/24 Complete 04:57 Basic Metabolic Panel LAB 12/09/24 Complete 04:57 Pt And Ptt LAB 12/09/24 Complete 05:02 Troponin I High LAB 12/09/24 Complete Sensitivity 05:02 B-Type Natriuretic LAB 12/09/24 In Process Peptide 05:02 Chest 1vw RAD 12/09/24 Logged 05:04 Vital Signs Date Time Temp Pulse Resp B/P (MAP) Pulse Ox O2 Delivery O2 Flow Rate FiO2 12/09/24 05:12 98.8 156 18 101/56 99 Room Air* 0 21 12/09/24 04:55 98.1 178 20 101/66 97 Room Air DX & DISP Disposition: Inpatient Departure Impression: Primary Impression: Paroxysmal SVT (supraventricular tachycardia) Condition: Stable Additional Instructions: Please keep her regularly scheduled appointment for your CT angiogram of your coronary arteries. Currently our tests show no damage to your heart from this episode. It maybe a good idea to talk to your clinical operations specialist about getting some PRN medications to help control these intermittent episodes of SVT. Referrals: PEREZ TAM MD (PCP) JINA ZHANG MD Dec 09, 2024 06:15
[2024-12-09 06:18] VITALS: BP 125/66; PULSE 80; RESP 18; TEMP 98.8; O2SAT 97
--- NOTE | 2024-12-09 08:59 | HMCIMG ---
Exam Type: CHEST 1VW Clinical Information: PALPITATIONS Comparison: None Findings: The lungs are clear of infiltrates. The heart is normal in size. The bony and soft tissue structures of the chest are unremarkable. Impression: Clear lungs.
== END 2024-12-09 06:31 | disposition home or self-care (01) ==
LOC: EDH 04:54
DX: I47.19 Other supraventricular tachycardia (principal); I10 Essential (primary) hypertension; I21.9 Acute myocardial infarction, unspecified; Z79.82 Long term (current) use of aspirin; Z79.899 Other long term (current) drug therapy; Z88.0 Allergy status to penicillin; Z98.890 Other specified postprocedural states
CPT/HCPCS: 36415; 71045; 80048; 83880; 84484; 85025; 85610; 85730; 93005; 99284